=== PATIENT | female | born 1955 | race Caucasian/White ===

== ENCOUNTER 2019-10-03 05:40 | Inpatient (IN) ==
[2019-09-26 10:01] LABS: Basophils # 0.1 10*3/uL (0.0-0.2); Basophils % 1.1 % (0.0-0.8); Eosinophils # 0.1 10*3/uL (0.0-0.87); Eosinophils % 2.2 % (0.00-10.9); Hematocrit 43.2 VOL% (35.7-47.0); Hemoglobin 14.1 GM/DL (12.0-16.0); Immature Granulocytes % 0.3 %; Immature Granulocytes Absolute 0.02 #; Lymphocytes # 1.8 10*3/uL (1.4-4.0); Lymphocytes % 28.1 % (21.3-54.2); Mean Corpuscular HGB Conc 32.6 GM/DL (32-36); Mean Corpuscular Volume 90.4 FL (87-102); Monocytes % 6.6 % (1.7-12.7); Neutrophils % 61.7 % (38.7-73.9); Platelet Count 283 T/CUMM (130-400); Red Blood Count 4.78 MC/CUMM (3.8-5.5); Red Cell Distribution Width 12.9 % (9.3-17.3); White Blood Count 6.4 T/CUMM (4-12)
[2019-09-26 10:08] LABS: INR 0.9; PT Patient Result 9.9 SECS (9.6-12.2); Partial Thromboplastin Time 24.3 SECS (20.8-36.0)
[2019-09-26 10:11] LABS: Apearance,Urine CLOUDY (Clear); Bacteria,Urine Moderate /HPF (Few); Bilirubin,Urine Negative (Negative); Blood, Urine Moderate mg/dL (Negative); Glucose,Urine (UA) Negative (Negative); Ketones,Urine Negative (Negative); Mucus,Urine Many /LPF (Occasional); Nitrite,Urine Negative (Negative); Protein,Urine Negative; RBC,Urine 6 /HPF (0-4); Squamous Epithelial Cell,Urine Moderate /HPF (0-10); Urine Color Yellow (Yellow); Urine Specific Gravity 1.014 (1.001-1.035); Urine Urobilinogen < 2.0 EU/DL (0.2-1.0); WBC,Urine 8 /HPF (0-6)
[2019-09-26 10:35] LABS: Albumin 4.2 G/DL (3.4-5.0); Bilirubin,Total 0.5 MG/DL (0.2-1.0); Calcium 9.7 MG/DL (8.5-10.1); Osmolality,Calculated 281.3 MOS/KG (273-304); Total Protein 7.7 G/DL (6.4-8.3)
[2019-10-03] MEDS ORDERED: FAMOTIDINE 20 MG/2 ML VIAL IV ONE (06:00)
[2019-10-03] MEDS ORDERED: LACTATED RINGERS 1,000 ML IV SCH ×2 (06:00→10:00)
[2019-10-03] MEDS ORDERED: VANCOMYCIN INJ 1,000 MG in SODIUM CHLORIDE 0.9% 250 ML IV ONE (06:00)
[2019-10-03] MEDS ORDERED: ceFAZolin 1,000 MG in SYRINGE 1 EACH IV ONE (06:00)
[2019-10-03] MEDS ORDERED: CLINDAMYCIN INJ 50 ML IV ONE (06:46)
[2019-10-03] MEDS ORDERED: FAMOTIDINE 20 MG TABLET ONE (06:46)
[2019-10-03] MEDS ORDERED: VANCOMYCIN 1,000 MG VIAL ONE (06:46)
[2019-10-03] MEDS ORDERED: ACETAMINOPHEN 500 MG TABLET PO STA (06:54)
[2019-10-03] MEDS ORDERED: GABAPENTIN 400 MG CAPSULE PO ONE (06:55)
[2019-10-03] MEDS ORDERED: FAMOTIDINE 20 MG TABLET PO STA (06:55)
[2019-10-03] MEDS ORDERED: DIAZEPAM 5 MG TABLET PO STA (06:55)
[2019-10-03] MEDS ORDERED: DIAZEPAM 5 MG TABLET ONE (07:15)
[2019-10-03] MEDS ORDERED: ACETAMINOPHEN 500 MG TABLET ONE (07:15)
[2019-10-03] MEDS ORDERED: GABAPENTIN 400 MG CAPSULE ONE (07:15)
[2019-10-03] MEDS ORDERED: CLINDAMYCIN INJ 900 MG in PREMIX 1 EACH IV ONE (08:20)
[2019-10-03] MEDS ORDERED: MIDAZOLAM 2 MG/2 ML VIAL ONE (08:43)
[2019-10-03] MEDS ORDERED: fentaNYL 100 MCG/2 ML VIAL ONE (08:43)
[2019-10-03] MEDS ORDERED: BACITRACIN OINT 0.9 GM PACK TOP ONE (08:59)
[2019-10-03] MEDS ORDERED: SCOPOLAMINE 1.5 MG PATCH TRANSDERM ONE (09:40)
[2019-10-03] MEDS ORDERED: oxyCODONE IR 5 MG TABLET PO PRN ×2 (10:00)
[2019-10-03] MEDS ORDERED: diphenhydrAMINE CAP 25 MG CAPSULE PO PRN (10:00)
[2019-10-03] MEDS ORDERED: ONDANSETRON 4 MG/2 ML VIAL IV PRN (10:00)
[2019-10-03] MEDS ORDERED: HYDROmorphone 2 MG/1 ML VIAL IV PRN ×2 (10:00→12:23)
[2019-10-03] MEDS ORDERED: MAGNESIUM HYDROXIDE SUSP 30 ML UDCUP PO PRN (10:00)
[2019-10-03] MEDS ORDERED: PROPOFOL 200 MG/20 ML VIAL IV ONE (12:09)
[2019-10-03] MEDS ORDERED: ONDANSETRON 4 MG/2 ML VIAL ONE (12:09)
[2019-10-03] MEDS ORDERED: TRANEXAMIC ACID 1,000 MG/10 ML VIAL ONE (12:09)
[2019-10-03] MEDS ORDERED: PHENYLEPHRINE 10 MG/1 ML VIAL IV ONE (12:09)
[2019-10-03] MEDS ORDERED: GLYCOPYRROLATE 0.4 MG/2 ML VIAL ONE (12:09)
[2019-10-03] MEDS ORDERED: PHENYLEPHRINE 1 MG/10 ML SYRINGE IV ONE (12:09)
[2019-10-03] MEDS ORDERED: LIDOCAINE 2% 5 ML VIAL ONE (12:09)
[2019-10-03] MEDS ORDERED: SEVOFLURANE 1 UNIT/15 MINUTE INH ONE (12:09)
[2019-10-03] MEDS ORDERED: NEOSTIGMINE 10 MG/10 ML VIAL ONE (12:10)
[2019-10-03] MEDS ORDERED: SODIUM CHLORIDE 0.9% 250 ML IV ONE (12:10)
[2019-10-03] MEDS ORDERED: ROCURONIUM 100 MG/10 ML VIAL IV ONE (12:10)
[2019-10-03] MEDS ORDERED: LACTATED RINGERS 1,000 ML IV ONE (12:10)
[2019-10-03] MEDS: KETOROLAC 30 MG/1 ML VIAL IV SCH ×3 (12:30→21:07)
[2019-10-03] MEDS ORDERED: KETOROLAC 30 MG/1 ML VIAL ONE (12:30)
[2019-10-03] MEDS: ACETAMINOPHEN 500 MG TABLET PO SCH ×2 (14:44→21:06)
[2019-10-03] MEDS: CLINDAMYCIN INJ 900 MG in PREMIX 1 EACH IV SCH ×2 (16:22→23:23)
[2019-10-03] MEDS ORDERED: METOPROLOL TARTRATE 25 MG TABLET PO SCH (19:00)
[2019-10-03] MEDS ORDERED: GABAPENTIN 100 MG CAPSULE PO SCH (21:00)
[2019-10-03] MEDS ORDERED: ATORVASTATIN 10 MG TABLET PO SCH (21:00)
[2019-10-04] MEDS: ACETAMINOPHEN 500 MG TABLET PO SCH ×2 (01:53→09:32)
[2019-10-04] MEDS: KETOROLAC 30 MG/1 ML VIAL IV SCH (03:58)
[2019-10-04] MEDS ORDERED: LEVOTHYROXINE 100 MCG TABLET PO SCH (07:00)
[2019-10-04 08:55] LABS: Basophils % 0.3 % (0.0-0.8); Hemoglobin 11.7 GM/DL (12.0-16.0); Immature Granulocytes % 0.6 %; Immature Granulocytes Absolute 0.07 #; Lymphocytes # 1.1 10*3/uL (1.4-4.0); Lymphocytes % 8.8 % (21.3-54.2); Mean Corpuscular HGB Conc 32.5 GM/DL (32-36); Mean Corpuscular Volume 90.2 FL (87-102); Mean Platelet Volume 11.1 FL (9.6-12.0); Monocytes % 7.1 % (1.7-12.7); Neutrophils % 83.2 % (38.7-73.9); Platelet Count 251 T/CUMM (130-400); Red Blood Count 3.99 MC/CUMM (3.8-5.5); Red Cell Distribution Width 12.9 % (9.3-17.3); White Blood Count 11.9 T/CUMM (4-12)
[2019-10-04] MEDS ORDERED: CHOLECALCIFEROL 1,000 UNIT TABLET PO SCH (09:00)
[2019-10-04] MEDS ORDERED: CALCIUM (CARBONATE)/VITAMIN D 600 MG-400 UNIT TABLET PO SCH (09:00)
[2019-10-04] MEDS ORDERED: hydroCHLOROthiazide 12.5 MG CAPSULE PO SCH (09:00)
[2019-10-04] MEDS ORDERED: amLODIPine 5 MG TABLET PO SCH (09:00)
[2019-10-04] MEDS ORDERED: GABAPENTIN 100 MG CAPSULE PO SCH (09:00)
[2019-10-04] MEDS ORDERED: ASPIRIN EC 81 MG TABLET PO SCH (09:00)
[2019-10-04] MEDS ORDERED: CYANOCOBALAMIN 500 MCG TABLET PO SCH (09:00)
[2019-10-04 11:25] VITALS: BP 135/63
== END 2019-10-04 13:30 | disposition home or self-care (01) | DRG 483 ==
LOC: N.SDSINP 05:40 → N.3E 13:21
PROVIDERS: ADMIT Orthopaedic Surgery; ATTEND Orthopaedic Surgery

== ENCOUNTER 2022-03-12 09:09 | Observation (INO) ==
[2022-03-12 10:21] LABS: Basophils # 0.1 10*3/uL (0.0-0.2); Basophils % 0.9 % (0.0-0.8); Eosinophils # 0.2 10*3/uL (0.0-0.87); Hematocrit 41.3 VOL% (35.7-47.0); Hemoglobin 13.4 GM/DL (12.0-16.0); Immature Granulocytes % 0.4 %; Immature Granulocytes Absolute 0.02 #; Lymphocytes # 1.5 10*3/uL (1.4-4.0); Lymphocytes % 27.8 % (21.3-54.2); Mean Corpuscular HGB Conc 32.4 GM/DL (32-36); Mean Corpuscular Volume 91.8 FL (87-102); Mean Platelet Volume 10.8 FL (9.6-12.0); Monocytes # 0.3 10*3/uL (0.11-0.8); Monocytes % 5.8 % (1.7-12.7); Neutrophils % 61.1 % (38.7-73.9); Platelet Count 247 T/CUMM (130-400); Red Cell Distribution Width 13.4 % (9.3-17.3); White Blood Count 5.5 T/CUMM (4-12)
[2022-03-12 10:40] LABS: Albumin 3.9 G/DL (3.4-5.0); Bilirubin,Total 0.4 MG/DL (0.20-1.00); Calcium 9.6 MG/DL (8.5-10.1); Potassium 3.7 MMOL/L (3.5-5.1)
[2022-03-12] MEDS ORDERED: guaiFENesin/DM ER 600-30 MG TABLET PO PRN (10:55)
[2022-03-12] MEDS ORDERED: NICOTINE 21 MG/24 HR PATCH TRANSDERM PRN (10:55)
[2022-03-12] MEDS ORDERED: DOCUSATE SODIUM 100 MG CAPSULE PO PRN (10:55)
[2022-03-12] MEDS ORDERED: hydrALAZINE 20 MG/1 ML VIAL IV PRN ×2 (10:55→12:28)
[2022-03-12] MEDS ORDERED: diphenhydrAMINE CAP 25 MG CAPSULE PO PRN (10:55)
[2022-03-12] MEDS ORDERED: ONDANSETRON 4 MG/2 ML VIAL IV PRN (10:55)
[2022-03-12] MEDS ORDERED: ZALEPLON 5 MG CAPSULE PO PRN (10:55)
[2022-03-12] MEDS ORDERED: ACETAMINOPHEN 325 MG TABLET PO PRN (10:55)
[2022-03-12] MEDS ORDERED: ALUMINUM/MAGNES/SIMETH MAX STR 30 ML UDCUP PO PRN (10:55)
[2022-03-12] MEDS ORDERED: MAGNESIUM SULF RIDER 2 GM/50 ML PREMIX IV PRN (10:55)
[2022-03-12] MEDS ORDERED: MAGNESIUM SULF RIDER 4 GM/100 ML PREMIX IV PRN (10:55)
[2022-03-12] MEDS ORDERED: KETOROLAC 30 MG/1 ML VIAL IV STA (11:22)
[2022-03-12] MEDS ORDERED: amLODIPine 5 MG TABLET PO SCH (11:30)
[2022-03-12] MEDS ORDERED: SODIUM CHLORIDE 0.45% 1,000 ML IV SCH (11:30)
[2022-03-12] MEDS ORDERED: amLODIPine 5 MG TABLET PO ONE (14:03)
[2022-03-12] MEDS: GABAPENTIN 100 MG CAPSULE PO SCH (20:53)
[2022-03-12] MEDS ORDERED: ATORVASTATIN 10 MG TABLET PO SCH (21:00)
[2022-03-13 05:08] LABS: Basophils # 0.1 10*3/uL (0.0-0.2); Basophils % 0.9 % (0.0-0.8); Eosinophils # 0.3 10*3/uL (0.0-0.87); Eosinophils % 4.7 % (0.00-10.9); Hematocrit 38.4 VOL% (35.7-47.0); Hemoglobin 12.3 GM/DL (12.0-16.0); Immature Granulocytes % 0.4 %; Immature Granulocytes Absolute 0.02 #; Mean Corpuscular Volume 91.4 FL (87-102); Monocytes # 0.5 10*3/uL (0.11-0.8); Monocytes % 8.2 % (1.7-12.7); Neutrophils % 48.8 % (38.7-73.9); Platelet Count 220 T/CUMM (130-400); Red Cell Distribution Width 13.5 % (9.3-17.3); White Blood Count 5.5 T/CUMM (4-12)
[2022-03-13 05:27] LABS: Calcium 8.9 MG/DL (8.5-10.1); Osmolality,Calculated 287.8 MOS/KG (273-304); Potassium 3.4 MMOL/L (3.5-5.1)
[2022-03-13 05:30] LABS: Alanine Aminotransferase 24 U/L (13-56); Albumin 3.3 G/DL (3.4-5.0); Alkaline Phosphatase 90 U/L (45-117); Aspartate Amino Transferase 19 U/L (0-37); Bilirubin,Total < 0.39 MG/DL (0.20-1.00); Blood Urea Nitrogen 16 MG/DL (7-18); Calcium 9.1 MG/DL (8.5-10.1); Carbon Dioxide 27 MMOL/L (21-32); Chloride 107 MMOL/L (98-107); Cholesterol 122 MG/DL (50-200); Estimated Glom Filtration Rate 87 ML/MIN; Glucose 119 MG/DL (74-106); HDL Cholesterol 37 MG/DL (40-60); Osmolality,Calculated 280.4 MOS/KG (273-304); Potassium 3.3 MMOL/L (3.5-5.1); Sodium 140 MMOL/L (136-145); Total Protein 6.1 G/DL (6.4-8.2); Triglycerides 163 MG/DL (2-150); VLDL Cholesterol 32.6 MG/DL
[2022-03-13] MEDS ORDERED: LEVOTHYROXINE 112 MCG TABLET PO SCH (06:30)
[2022-03-13] MEDS ORDERED: ASPIRIN EC 81 MG TABLET PO SCH (09:00)
[2022-03-13] MEDS ORDERED: PANTOPRAZOLE 40 MG TABLET PO SCH (09:00)
[2022-03-13] MEDS ORDERED: CALCIUM (CARBONATE) 500 MG TABLET PO SCH (09:00)
[2022-03-13] MEDS ORDERED: amLODIPine 10 MG TABLET PO SCH (09:00)
[2022-03-13] MEDS ORDERED: CHOLECALCIFEROL 1,000 UNIT TABLET PO SCH (09:00)
[2022-03-13] MEDS: GABAPENTIN 100 MG CAPSULE PO SCH (10:00)
[2022-03-13 12:09] VITALS: BP 140/73
== END 2022-03-13 10:54 | disposition home or self-care (01) ==
LOC: N.EDINP 09:09 → N.ED 09:09 → N.TELEN 13:21
PROVIDERS: ADMIT Internal Medicine Cardiovascular Disease; ATTEND Internal Medicine Cardiovascular Disease